=== PATIENT | male | born 1985 | race Caucasian/White ===

== ENCOUNTER 2019-08-05 14:15 | Emergency (ER) | payer OTHER ==
[~2019-08-05] VITALS: Ht 180.3 cm; Wt 90.7 kg
[2019-08-05] MEDS ORDERED: CHLORDIAZEPOXI1 EACH PO (14:29)
[2019-08-05] MEDS ORDERED: DICY20TA PO (14:29)
[2019-08-05] MEDS ORDERED: METOCLOPRAMIDE H5 MG PO (14:30)
[2019-08-05] MEDS ORDERED: PANTOPRAZOLE SO40 M1 (14:30)
== END 2019-08-05 19:55 | disposition home or self-care (01) ==
LOC: EDBD 14:15 → ER 14:15
DX: K52.89 Other specified noninfective gastroenteritis and colitis (principal); K58.8 Other irritable bowel syndrome